=== PATIENT | male | born 1970 | race Caucasian/White ===

== ENCOUNTER 2016-09-18 17:34 | Inpatient (IN) | payer MEDICAID ==
[~2016-09-18] VITALS: Ht 170.2 cm; Wt 68.7 kg
[~2016-09-18 17:34] MED LIST: [UNRECOGNIZED DRUG - OTHER]; lantus
--- NOTE | 2016-09-18 23:46 | ERA ---
ER Documentation Chief Complaint Date/Time DATE: 09/18/16 TIME: 23:45 Chief Complaint Shortness of breath HPI The patient is a 46-year-old male, presenting to the ER because of acute dyspnea , orthopnea, paroxysmal nocturnal dyspnea and intermittent cough for 1 week. He denies similar symptoms previously. He denies chest pain, fever, chills, neck pain, abdominal pain, vomiting, dysuria, diarrhea. He does not smoke does not drink. His last hemodialysis was yesterday Past medical history: Chronic kidney disease, hypertension, diabetes mellitus Past surgical history: Left upper extremity AV fistula, right shoulder, back ROS All systems reviewed and are negative except as per history of present illness. Medications Home Meds Reported Medications [meds for htn] No Conflict Check 01/13/15 [lantus] No Conflict Check 01/13/15 Allergies Allergies: Coded Allergies: No Known Allergy (Unverified , 01/13/15) PMhx/Soc History of Surgery: Yes (rihgt arm "nerve" surgery) Anesthesia Reaction: No Hx Neurological Disorder: No Hx Respiratory Disorders: No Hx Cardiac Disorders: Yes (hypertension) Hx Psychiatric Problems: No Hx Miscellaneous Medical Probl: Yes (diabetes mellitus) Hx Alcohol Use: No Hx Substance Use: No Hx Tobacco Use: No Physical Exam Vitals Vital Signs Date Time Temp Pulse Resp B/P Pulse Ox O2 Delivery O2 Flow Rate FiO2 09/19/16 02:28 81 22 171/91 98 Nasal Cannula 4.0 09/19/16 00:34 Nasal Cannula 2 09/19/16 00:20 98.2 79 20 194/98 98 Room Air 09/18/16 17:36 98.1 89 20 209/98 99 Physical Exam Const: No acute distress. Head: Atraumatic. Eyes: Normal Conjunctiva. ENT: Normal External Ears, Nose and Mouth. Neck: Full range of motion. No meningismus. Resp: Bibasilar crackles. Cardio: Regular rate and rhythm, no murmurs. Abd: Soft, non distended, normal bowel sounds, non tender. Skin: No petechiae or rashes. Back: No midline or flank tenderness. Ext: No cyanosis, or edema. Neur: Awake and alert. No focal deficit Psych: Normal Mood and Affect. Result Diagram: 09/19/16 0020 09/19/16 0020 Results 24 hrs Laboratory Tests Test 09/19/16 00:20 Activated Partial Thromboplast Time 32.0Sec Anion Gap 19 Basophils # 0.010^3/ul Basophils % 0.5% Blood Morphology Comment Blood Urea Nitrogen 61mg/dl Calcium Level 8.8mg/dl Carbon Dioxide Level 28mmol/L Chloride Level 94mmol/L Creatinine 10.72mg/dl Eosinophils # 0.310^3/ul Eosinophils % 4.1% Glucose Level 95mg/dl Hematocrit 32.6% Hemoglobin 10.8g/dl INR International Normalized Ratio 1.01 Lymphocytes # 0.610^3/ul Lymphocytes % 10.3% Mean Corpuscular Hemoglobin 30.4pg Mean Corpuscular Hemoglobin Concent 33.2g/dl Mean Corpuscular Volume 91.7fl Mean Platelet Volume 9.1fl Monocytes # 0.710^3/ul Monocytes % 11.2% Neutrophils # 4.510^3/ul Neutrophils % 73.9% Nucleated Red Blood Cells # 0.010^3/ul Nucleated Red Blood Cells % 0.0/100WBC Platelet Count 96972^3/UL Potassium Level 5.3mmol/L Prothrombin Time 13.3Sec Prothrombin Time Ratio 1.0 Red Blood Count 3.5610^6/ul Red Cell Distribution Width 15.2% Sodium Level 136mmol/L Troponin I 0.026ng/ml White Blood Count 6.010^3/ul Current Medications Medications (Trade) Dose Ordered Sig/Yousif Route PRN Reason Start Time Stop Time Status Last Admin Dose Admin Hydralazine HCl (Apresoline) 20 mg ONCE ONCE IV 09/19/16 00:30 09/19/16 00:31 DC 09/19/16 00:34 Sodium Polystyrene Sulfonate (Kayexalate) 30 gm ONCE ONCE PO 09/19/16 01:30 09/19/16 01:31 DC 09/19/16 01:39 Labetalol HCl (Labetalol) 20 mg ONCE ONCE IV 09/19/16 01:30 09/19/16 01:33 DC 09/19/16 01:40 Amlodipine Besylate (Norvasc) 10 mg ONCE ONCE PO 09/19/16 01:30 09/19/16 01:33 DC 09/19/16 01:49 Labetalol HCl (Labetalol) 40 mg ONCE ONCE IV 09/19/16 02:30 09/19/16 02:31 DC 09/19/16 02:11 Labetalol HCl (Labetalol) 40 mg ONCE ONCE IV 09/19/16 04:30 09/19/16 04:39 DC 09/19/16 04:39 Procedures/MDM EKG: Read by emergency physician Rate/Rhythm: Normal Sinus Rhythm 85 beats per min QRS, ST, T-waves: No ST elevation, no T wave inversion, LAD, RSR prime in V1 Impression: Abnormal EKG [place] [id number] Radiology Main Line: [phone] DIAGNOSTIC IMAGING REPORT Patient: JONO BOND : 1970 Age: 46 Sex: M MR #: [id number] DOS: 09/19/16 0009 Ordering MD: IRINA FUNEZ MD Location: E/R Room/Bed: PROCEDURE: XR Chest. CLINICAL INDICATION: SOB TECHNIQUE: Single frontal chest x-ray. COMPARISON: 01/13/2015 FINDINGS: The patient is rotated to the right. There is hypoinflation of the lungs. This along with portable AP technique accentuates the size of the cardiac silhouette. The heart does not appear to be grossly enlarged. The appearance of minimal pulmonary vascular congestion and mild bilateral increased interstitial lung densities which could represent mild interstitial pulmonary edema or other infiltrates appearing since previous study. ECG leads projected over the chest.. IMPRESSION: Hypoinflation of the lungs. Appearance of minimal pulmonary vascular congestion and mild bilateral increased interstitial lung densities which could represent mild interstitial pulmonary edema or other infiltrates appearing since previous study. Please see above. RPTAT: HJES .Kwame Santiago MD, Date Time Electronically viewed and signed by .Kwame Santiago MD, MD on 09/19/2016 01:16 .S/ CC: IRINA FUNEZ MD MEDICAL MAKING DECISION: The patient is a 46-year-old male, presenting with acute fluid overload, acute hyperkalemia, acute accelerated hypertension. He does not make any urine; he was treated with hydralazine 20 mg IV, labetalol 20 mg IV, labetalol 40 mg IV 2 and Norvasc 10 mg p.o. for acute accelerated hypertension and Kayexalate 30 g p.o. for acute hyperkalemia with good response. The differential diagnoses considered include but are not limited to asthma, COPD, pneumonia, pulmonary embolus, pleural effusion, congestive heart failure. Critical Care: Time: 35 minutes excluding all billable procedures. Treatments/Evaluations: Close monitoring and treatment of unstable vital signs, cardiorespiratory, and neurologic status, while maintaining tight balance of fluid, respiratory, and cardiac interventions. Departure Diagnosis: Primary Impression: Fluid overload Additional Impressions: Hyperkalemia Accelerated hypertension Anemia Condition: Stable Comments I discussed the findings with the patient. I discussed the patient with on-call hospitalist Dr Hunag who was made aware of the lab, the treatment, the patient condition. The patient is admitted to telemetry at 1:30 AM IRINA FUNEZ MD Sep 18, 2016 23:46
[2016-09-19] VITALS (23 sets, daily range): BP systolic 175–222; BP diastolic 80–121; PULSE 80–100; RESP 18–20; TEMP 98.2; Ht 170.2 cm; Wt 68.7 kg
[2016-09-19] MEDS ORDERED: hydrALAzine 20 MG INJ IV ONE (00:30)
[2016-09-19 00:47] LABS: INR 1.01; POTASSIUM 5.3 mmol/L (3.5-5.1); PROTIME 13.3 Sec (12.2-14.2)
[2016-09-19 00:49] LABS: CREATININE 10.72 mg/dl (0.61-1.24)
[2016-09-19 00:50] LABS: CALCIUM 8.8 mg/dl (8.4-10.2)
[2016-09-19 01:01] LABS: TROPONIN-I 0.026 ng/ml (0.00-0.12)
[2016-09-19 01:09] LABS: BASOPHILS % 0.5 % (0.0-2.0); EOSINOPHILS # 0.3 10^3/ul (0.0-0.5); EOSINOPHILS % 4.1 % (0.0-7.0); HEMATOCRIT 32.6 % (42.0-52.0); HEMOGLOBIN 10.8 g/dl (14.0-18.0); LYMPHOCYTES # 0.6 10^3/ul (0.8-2.9); LYMPHOCYTES % 10.3 % (15.0-51.0); MEAN CORPUSCULAR HEMOGLOBIN 30.4 pg (29.0-33.0); MEAN CORPUSCULAR HGB CONC 33.2 g/dl (32.0-37.0); MEAN CORPUSCULAR VOLUME 91.7 fl (82.0-101.0); MEAN PLATELET VOLUME 9.1 fl (7.4-10.4); MONOCYTE # 0.7 10^3/ul (0.3-0.9); MONOCYTES % 11.2 % (0.0-11.0); NEUTROPHIL # 4.5 10^3/ul (1.6-7.5); NEUTROPHILS % 73.9 % (39.0-77.0); PLATELET COUNT 163 10^3/UL (140-440); RED BLOOD COUNT 3.56 10^6/ul (4.70-6.10); RED CELL DISTRIBUTION WIDTH 15.2 % (11.5-14.5)
[2016-09-19 01:10] LABS: CONDITION 1; LH ANALYZER COMMENTS 1
--- NOTE | 2016-09-19 01:16 | RADRPT ---
PROCEDURE: XR Chest. CLINICAL INDICATION: SOB TECHNIQUE: Single frontal chest x-ray. COMPARISON: 01/13/2015 FINDINGS: The patient is rotated to the right. There is hypoinflation of the lungs. This along with portable AP technique accentuates the size of the cardiac silhouette. The heart does not appear to be gross ly enlarged. The appearance of minimal pulmonary vascular congestion and mild bilateral increased i nterstitial lung densities which could represent mild interstitial pulmonary edema or other infiltra raghav appearing since previous study. ECG leads projected over the chest.. IMPRESSION: Hypoinflation of the lungs. Appearance of minimal pulmonary vascular congestion and mild bilateral increased interstitial lung densities which could represent mild interstitial pulmonary edema or oth er infiltrates appearing since previous study. Please see above. RPTAT: HJES .Kwame Santiago MD, MD Date Time Electronically viewed and signed by .Kwame Santiago MD, on 09/19/2016 01:16 .S/
[2016-09-19] MEDS ORDERED: AMLODIPINE 10 MG TAB PO ONE (01:30)
[2016-09-19] MEDS ORDERED: NA POLYST SULFON 15 GM/60 ML BTL PO ONE (01:30)
[2016-09-19] MEDS ORDERED: LABETALOL HCL 20MG INJ IV ONE ×4 (01:30→16:21)
[2016-09-19] MEDS ORDERED: NITROGLYCERIN (SL) 0.4 MG TAB SL PRN (08:30)
[2016-09-19] MEDS ORDERED: ALBUTEROL/IPRATROPIUM (NEB) 3 ML AMP HHN PRN (08:30)
[2016-09-19] MEDS ORDERED: NACL 0.9% 3 ML SYG IV SCH (08:30)
[2016-09-19] MEDS ORDERED: ONDANSETRON 4 MG INJ IV PRN (08:30)
[2016-09-19] MEDS: HEPARIN 5,000 UNIT/0.5 ML SYG SC SCH ×2 (10:59→21:06)
[2016-09-19] MEDS: ASPIRIN 81 MG TAB PO SCH ×2 (10:59→11:48)
[2016-09-19] MEDS: ACETAMINOPHEN 325 MG TAB PO PRN (11:13)
[2016-09-19] MEDS: AMLODIPINE 10 MG TAB PO SCH ×2 (11:49→15:03)
--- NOTE | 2016-09-19 12:01 | HP ---
DATE OF ADMISSION: 09/19/2016 TIME SEEN: 7 a.m. CHIEF COMPLAINT: Shortness of breath and cough. HISTORY OF PRESENT ILLNESS: The patient is a 46-year-old male with a history of hypertension, diabet es, depression, end-stage renal disease on hemodialysis who presented to the emergency department wi th shortness of breath and a cough. It seems that patient's last dialysis was yesterday. The patie nt is not really sure whether or not his shortness of breath has an exertional component to it. He d enied any chest pain, nausea, vomiting, fever, chills, abdominal pain. His cough was dry for the mo st part but occasionally productive of white sputum. When the patient presented to the ER he was hypertensive with a blood pressure of 209/98, which impr jim to 179/80, around the time ____. While the patient was in the ER, chest x-ray was done and it showed mild pulmonary edema and possibl e ____. REVIEW OF SYSTEMS: A 12-point review of systems was performed and is negative except mentioned in th e HPI. PAST MEDICAL HISTORY: As per HPI. PAST SURGICAL HISTORY: Left upper extremity AV fistula, also right shoulder and lumbar surgery. SOCIAL HISTORY: Drinks alcohol occasionally. No tobacco or illicit drug use. ALLERGIES AND HOME MEDICATIONS: Please see ____. PHYSICAL EXAMINATION: VITAL SIGNS: Blood pressure 179/80, heart rate 84, respiratory rate 20, temperature 98.6, oxygen sa turation 99% on room air. GENERAL: No acute distress. He looks comfortable, alert and oriented. HEENT: No obvious head deformity. Pupils are reactive to light. Extraocular muscles intact. No sc leral icterus. CARDIOVASCULAR: Regular rate and rhythm. No extra sounds. LUNGS: Slightly diminished breath sounds at the bases. No wheezes or rhonchi. ABDOMEN: Soft, nontender, nondistended. Positive bowel sounds. EXTREMITIES: Trace pitting edema. The AV fistula with a good thrill in the left upper extremity. IMAGING: Chest x-ray with mild pulmonary edema and probably infiltrates IMPRESSION: 1. Shortness of breath and cough. 2. Hypertensive urgency. 3. End-stage renal disease on dialysis. 4. Diabetes. 5. History of depression. PLAN: The patient's presenting symptoms of shortness of breath and cough could possibly be from the mild pulmonary edema and probable URI versus early pneumonia. He will be placed on oxygen and will provide bronchodilators as needed. He will need to be worked up for possible CHF, and as such, will obtain a 2D echo. We will trend his troponin. Will continue antihypertensives and adjust as needed for better blood pressure control. We will place a nephrology consult for dialysis. He will be on insulin for his diabetes and will check an A1c ____ with it and a TSH. If his cough persists, and e specially if he becomes febrile we are also going to check for influenza. Further workup and management per clinical course. Dictated By: FERNANDO LEAHY/GERARDO Conf#: [id number] DID#: [id number]
[2016-09-19 12:28] LABS: TROPONIN-I 0.015 ng/ml (0.00-0.12)
[2016-09-19] MEDS ORDERED: GLUCAGON 1 MG INJ IM PRN (12:30)
[2016-09-19] MEDS ORDERED: GLUCOSE GEL 15 GRAM TUBE BUCCAL PRN (12:30)
[2016-09-19] MEDS: INSULIN ASPART [NOVOLOG] 3 ML PEN SC SCH ×3 (12:30→21:05)
[2016-09-19] MEDS ORDERED: DEXTROSE 50% 50 ML SYRINGE IV PRN ×2 (12:30)
[2016-09-19] MEDS ORDERED: GLUCOSE GEL 15 GRAM TUBE PO PRN ×2 (12:30)
[2016-09-19 12:35] LABS: CK-MB 2.39 ng/ml (0.0-2.4)
--- NOTE | 2016-09-19 13:18 | CONS ---
DATE OF ADMISSION: 09/19/2016 DATE OF CONSULTATION: TYPE OF CONSULTATION: Nephrology. REASON FOR CONSULTATION: End-stage renal disease, hyperkalemia. REQUESTING PHYSICIAN: Young Huang MD HISTORY OF PRESENT ILLNESS: This is a 46-year-old male with a past medical history of end-stage anibal al disease on dialysis Friday, , Friday with access of a left upper extremity AV fistula. The patient's primary court clerk is Dr. Spencer out of [place]. The patient also has history of hy pertension. He presents to [facility] [place] with complaints of shortness of breath, par oxysmal nocturnal dyspnea and intermittent cough. The patient states these symptoms have been ongoi ng over the past week. Upon arrival to the emergency room, the patient had a chest x-ray which show ed vascular congestion, interstitial lung densities and possible edema. The patient in the emergenc y room was also noted to be hypotensive with systolic pressures greater than 200. He received IV la betalol and Norvasc in the emergency room, hydralazine and admitted to telemetry for further evaluat ion. Upon my evaluation of the patient at this time, he is currently complaining of some mild shortness b reath, denies any active chest pain, nausea, vomiting, hemoptysis or hematemesis. PAST MEDICAL HISTORY: As stated above, history of end-stage renal disease, history of hypertension, history of diabetes. PAST SURGICAL HISTORY: Status post AV fistula. ALLERGIES: NO KNOWN DRUG ALLERGIES. FAMILY HISTORY: No family history of kidney disease or heart disease. SOCIAL HISTORY: Does not drink, smoke or do drugs. MEDICATIONS: The patient's medications have been reviewed. REVIEW OF SYSTEMS: A 14-point review of systems was conducted. Pertinent positives in HPI, otherwi se negative. PHYSICAL EXAMINATION: VITAL SIGNS: Blood pressure is 208/100, respirations 20, pulse 96, temperature 98.2. HEENT: Head is normocephalic. Pupils are reactive to light. NECK: Supple. HEART: Regular rate. LUNGS: Show diminished breath sounds at the base. ABDOMEN: Soft, nontender to palpation without rebound or guarding. EXTREMITIES: Negative for clubbing, cyanosis, or edema. DERMATOLOGIC: No rashes. MUSCULOSKELETAL: The patient has a left AV fistula with good thrill and bruit. NEUROLOGIC: No focal deficits. LABORATORY DATA: Shows a white count 6.0, hemoglobin 10.8, hematocrit 32.6, platelet count 163. So dium 136, potassium 4.3, chloride 94, BUN 61, creatinine 2.72. ASSESSMENT AND PLAN: 1. End-stage renal disease. The patient is on dialysis Friday, , Friday, with an access of a left AV fistula. Plan is for hemodialysis today. Will dialyze for 3 hours on a 2K bath, calc ium 2.5, will ultrafiltrate as tolerated. 2. Hypertensive urgency, etiology in part due to increased intravascular volume. Anticipate dialys is today and tomorrow for volume removal and goal ultrafiltration between 2 to 3 liters. 3. Volume overload. The patient has noted pulmonary edema, lower extremity edema. Will continue u ltrafiltration with hemodialysis. 4. Hyperkalemia secondary to end-stage renal disease. The patient will be dialyzed 2 potassium bat h. 5. Mineral bone disorder, will monitor calcium and phosphorus levels. Defer phosphate binders at t his time. 6. Acute respiratory failure secondary to pulmonary edema as stated above. Plan is for dialysis ul trafiltration. Thank you, Dr. Huang, for this interesting consult. It will be a pleasure to follow the patient with you throughout the hospital course. Dictated By: GIOVANA HOUSE/GERARDO Conf#: [id number] DID#: [id number]
[2016-09-19 15:44] LABS: TROPONIN-I 0.018 ng/ml (0.00-0.12)
[2016-09-19] MEDS ORDERED: hydrALAzine 20 MG INJ ONE (15:47)
[2016-09-19 15:50] LABS: CK-MB 2.15 ng/ml (0.0-2.4)
[2016-09-19] MEDS: hydrALAzine 20 MG INJ IV PRN (15:50)
[2016-09-19] MEDS: HYDROCODONE/APAP (5/325) TAB PO PRN (16:51)
[2016-09-19] MEDS: LISINOPRIL 10 MG TAB PO SCH (17:20)
--- NOTE | 2016-09-19 20:06 | RADRPT ---
Echocardiogram Report Patient Name: JONO BOND Gender: Male Date: 1970 Study Date: 19-Sep-2016 [employer] Helper: [facility] Location: 518 Ref. Physician: FERNANDO ROBLES Quality: Good Procedures: Transthoracic echocardiogram with complete 2D, M-Mode, and doppler examination. Indications: Shortness of breath. 2D/M Mode Doppler Measurement Value Normal Ranges Measurement Value Normal Ranges LVIDd 2D 5.4 3.5 - 5.6 cm AV Peak Theo 1.2 m/sec LVIDs 2D 3.6 2.1 - 4.1 cm AV Peak PG 6.0 mmHg FS 2D 33.9 % LVOT Peak Theo 1.1 m/sec LVPWd 2D 1.3 0.6 - 1.1 cm LVOT Peak PG 5.0 mmHg IVSd 2D 1.2 0.6 - 1.1 cm MV E Peak Theo 0.9 m/sec IVS/LVPW 2D 1.0 MV A Peak Theo 0.5 m/sec AoR Diam 2D 3.2 2.0 - 3.7 cm MV E/A 1.8 LA/Ao 2D 1 0 - 1 MV Decel Time 102 msec EDV 2D 159.0 cm3 MV E/A 1.8 ESV 2D 45.9 cm3 TR Peak Theo 3.6 m/sec LA Dimen 2D 4.4 2.3 - 4.0 cm TR Peak PG 53.0 mmHg RVSP 61.0 mmHg Findings Left Ventricle: Lower limits of normal systolic function. Normal left ventricular cavity size. Mild concentric left ventricular hypertrophy. Mild left ventricular systolic dysfunction. Ejection fraction is visually estimated at 50 %. Tissue Doppler/Mitral Doppler indices are consistent with impaired relaxation (Stage I diastolic dysfunction). Right Ventricle: Normal right ventricular size. Normal right ventricular systolic function. Left Atrium: There is mild enlargement of left atrium. Right Atrium: The right atrium is normal in size. Mitral Valve: Mitral valve leaflets appear mildly thickened. Mild mitral annular calcification. Mild mitral valve regurgitation. Aortic Valve: Normal appearance of the aortic valve. No significant aortic stenosis or insufficiency. Tricuspid Valve: Normal appearance of the tricuspid valve. Estimated peak PA systolic pressure 61 mmHg. There is mild tricuspid regurgitation. Pericardium: Normal pericardium with no significant pericardial effusion. Aorta: Normal aortic root. IVC: Dilated IVC with respiratory collapse consistent with elevated right atrial pressure. Conclusions 1.Lower limits of normal systolic function. Normal left ventricular cavity size. Mild concentric left ventricular hypertrophy. Mild left ventricular systolic dysfunction. Ejection fraction is visually estimated at 50 %. Tissue Doppler/Mitral Doppler indices are consistent with impaired relaxation (Stage I diastolic dysfunction). 2.There is mild enlargement of left atrium. 3.Mitral valve leaflets appear mildly thickened. Mild mitral annular calcification. Mild mitral valve regurgitation. 4.Normal appearance of the tricuspid valve. Estimated peak PA systolic pressure 61 mmHg. There is mild tricuspid regurgitation. Electronically Signed By: Montrell Ortiz 19-Sep-2016 20:05:08 -0800 Patient Name: JONO BOND Study Date: 19-Sep-2016 [id number]
[2016-09-19] MEDS: ZOLPIDEM 5 MG TAB PO PRN (20:49)
[2016-09-19] MEDS: morphine 2 MG INJ IV PRN (21:00)
[2016-09-20] VITALS (19 sets, daily range): BP systolic 176–218; BP diastolic 82–110; PULSE 85–100; RESP 16–20
[2016-09-20] MEDS: ACCUCHECK XX SCH (02:00)
[2016-09-20] MEDS: ACETAMINOPHEN 325 MG TAB PO PRN (03:49)
[2016-09-20] MEDS: hydrALAzine 20 MG INJ IV PRN ×2 (03:50→19:48)
[2016-09-20 06:43] LABS: ALBUMIN 3.3 g/dl (3.3-4.9); POTASSIUM 4.8 mmol/L (3.5-5.1)
[2016-09-20 06:45] LABS: CREATININE 9.08 mg/dl (0.61-1.24)
[2016-09-20 06:46] LABS: ALBUMIN/GLOBULIN RATIO 1.26; BILIRUBIN,INDIRECT 0.1 mg/dl (0-1.1); BILIRUBIN,TOTAL 0.1 mg/dl (0.2-1.3); CALCIUM 8.2 mg/dl (8.4-10.2); MAGNESIUM 2.2 mg/dl (1.7-2.5); TOTAL PROTEIN 5.9 g/dl (6.1-8.1)
[2016-09-20 06:47] LABS: CHOL/HDL RATIO 2.2 RATIO
[2016-09-20 06:51] LABS: BASOPHILS % 0.4 % (0.0-2.0); EOSINOPHILS # 0.6 10^3/ul (0.0-0.5); EOSINOPHILS % 8.8 % (0.0-7.0); HEMATOCRIT 30.4 % (42.0-52.0); HEMOGLOBIN 10.3 g/dl (14.0-18.0); LYMPHOCYTES # 0.9 10^3/ul (0.8-2.9); LYMPHOCYTES % 12.7 % (15.0-51.0); MEAN CORPUSCULAR HEMOGLOBIN 31.3 pg (29.0-33.0); MEAN CORPUSCULAR HGB CONC 33.9 g/dl (32.0-37.0); MEAN CORPUSCULAR VOLUME 92.2 fl (82.0-101.0); MEAN PLATELET VOLUME 8.5 fl (7.4-10.4); MONOCYTE # 0.8 10^3/ul (0.3-0.9); MONOCYTES % 11.4 % (0.0-11.0); NEUTROPHIL # 4.5 10^3/ul (1.6-7.5); NEUTROPHILS % 66.7 % (39.0-77.0); PLATELET COUNT 171 10^3/UL (140-440); UNCORRECTED WBC 6.7 10^3/ul (4.8-10.8); WHITE BLOOD COUNT 6.7 10^3/ul (4.8-10.8)
[2016-09-20 07:45] LABS: THYROID STIMULATING HORMONE 1.54 MIU/L (0.465-4.680)
[2016-09-20] MEDS: INSULIN ASPART [NOVOLOG] 3 ML PEN SC SCH ×4 (07:55→21:11)
[2016-09-20 08:00] LABS: CONDITION 1; LH ANALYZER COMMENTS 1
[2016-09-20] MEDS: ASPIRIN 81 MG TAB PO SCH (08:23)
[2016-09-20] MEDS: AMLODIPINE 10 MG TAB PO SCH (08:24)
[2016-09-20] MEDS: LISINOPRIL 10 MG TAB PO SCH (08:24)
[2016-09-20] MEDS: HEPARIN 5,000 UNIT/0.5 ML SYG SC SCH ×2 (08:29→21:11)
[2016-09-20] MEDS ORDERED: LISINOPRIL 10 MG TAB PO ONE (10:00)
[2016-09-20] MEDS: HYDROCODONE/APAP (5/325) TAB PO PRN (11:28)
--- NOTE | 2016-09-20 13:01 | PN ---
Date/Time of Note Date/Time of Note DATE: 09/20/16 TIME: 12:55 Assessment/Plan VTE Prophylaxis VTE Prophylaxis Intervention: heparin Lines/Catheters IV Catheter Type (from Nrs): Peripheral IV Urinary Cath still in place: No Assessment/Plan Chief Complaint/Hosp Course 1.Acute Resp Distress 2/2 Pulm Edema from ESRD -cont HD today 2. Hypertensive urgency likely 2/2 Volume OD -Have Increased Lisinopril to 20 mg Daily and if still high tomorrow would increase to 40 Daily, cont Norvasc and Clonidine PRN 3. End-stage renal disease on dialysis -HD per renal with plans for HD today 4. DM with Hyperglycemia possibly 2/2 Stress -A1C at 5.2,cont NISS PPx- Heparin Problems: Subjective 24 Hr Interval Summary Constitutional: no complaints Exam/Review of Systems Vital Signs Vitals Vital Signs Date Time Temp Pulse Resp B/P Pulse Ox O2 Delivery O2 Flow Rate FiO2 09/20/16 11:24 98.1 92 18 186/92 94 09/19/16 21:00 2.0 09/19/16 21:00 Nasal Cannula Intake and Output 09/19/16 09/19/16 09/20/16 15:00 23:00 07:00 Intake Total 1680 ml 400 ml Output Total 2500 ml Balance -820 ml 400 ml Exam Constitutional: alert, oriented Respiratory: clear to auscultation Cardiovascular: regular rate and rhythm Gastrointestinal: soft, No distended Musculoskeletal: nl extremities to inspection Results Result Diagram: 09/20/16 0519 09/20/16 0519 Results 24 hrs Laboratory Tests Test 09/19/16 14:50 09/19/16 17:22 09/19/16 20:14 09/20/16 03:55 Creatine Kinase 254 H Creatine Kinase Index 0.8 Creatinine Kinase MB (Mass) 2.15 Troponin I 0.018 Bedside Glucose 182 215 150 Test 09/20/16 05:19 09/20/16 07:50 09/20/16 11:32 Alanine Aminotransferase (ALT/SGPT) 27 Albumin 3.3 Albumin/Globulin Ratio 1.26 Alkaline Phosphatase 82 Anion Gap 17 H Aspartate Amino Transf (AST/SGOT) 18 Basophils # 0.0 Basophils % 0.4 Blood Morphology Comment Blood Urea Nitrogen 41 #H Calcium Level 8.2 L Carbon Dioxide Level 31 Chloride Level 97 Cholesterol Level 124 Cholesterol/HDL Ratio 2.2 Creatinine 9.08 H Direct Bilirubin 0.00 Eosinophils # 0.6 H Eosinophils % 8.8 H Globulin 2.60 Glucose Level 126 HDL Cholesterol 54 Hematocrit 30.4 L Hemoglobin 10.3 L Hemoglobin A1c 5.2 Indirect Bilirubin 0.1 LDL Cholesterol, Calculated 55 Lymphocytes # 0.9 Lymphocytes % 12.7 L Magnesium Level 2.2 Mean Corpuscular Hemoglobin 31.3 Mean Corpuscular Hemoglobin Concent 33.9 Mean Corpuscular Volume 92.2 Mean Platelet Volume 8.5 Monocytes # 0.8 Monocytes % 11.4 H Neutrophils # 4.5 Neutrophils % 66.7 Nucleated Red Blood Cells # 0.0 Nucleated Red Blood Cells % 0.0 Platelet Count 171 Potassium Level 4.8 Red Blood Count 3.30 L Red Cell Distribution Width 15.0 H Sodium Level 140 Thyroid Stimulating Hormone (TSH) 1.540 Total Bilirubin 0.1 L Total Protein 5.9 L Triglycerides Level 75 White Blood Count 6.7 Bedside Glucose 111 170 Medications Medications Current Medications Ondansetron HCl (Zofran Inj) 4 mg Q6H PRN IV NAUSEA AND/OR VOMITING; Start 09/19 at 08:30 Aspirin (Aspirin) 81 mg DAILY PO Last administered on 09/20/16 08:23; Admin Dose 81 MG; Start 09/19/16 at 09:00 Nitroglycerin (Nitroglycerin (Sl Tab) 0.4 Mg) 1 tab Q5M PRN SL CHEST PAIN; Start 09/19/16 at 08:30 Acetaminophen (Tylenol Tab) 650 mg Q6H PRN PO PAIN LEVEL 1-3 OR FEVER Last administered on 09/20/16 03:49; Admin Dose 650 MG; Start 09/19/16 at 08:30 Morphine Sulfate (morphine) 2 mg Q4H PRN IV PAIN LEVEL 7-10 Last administered on 09/19/16 21:00; Admin Dose 2 MG; Start 09/19/16 at 08:30 Heparin Sodium (Porcine) (Heparin (5000 Units/0.5 ml)) 5,000 unit Q12 SC Last administered on 09/20/16 08:29; Admin Dose 5,000 UNIT; Start 09/19/16 at 09:00 Amlodipine Besylate (Norvasc) 10 mg DAILY PO Last administered on 09/20/16 08: 24; Admin Dose 10 MG; Start 09/19/16 at 12:00 Diagnostic Test (Pha) (Accucheck) 1 ea 02 XX Last administered on 09/20/16 02: 00; Admin Dose 1 EA; Start 09/20/16 at 02:00 Miscellaneous Information 1 ea NOTE XX ; Start 09/19/16 at 12:30 Glucose (Glutose) 15 gm Q15M PRN PO DECREASED GLUCOSE; Start 09/19/16 at 12:30 Glucose (Glutose) 22.5 gm Q15M PRN PO DECREASED GLUCOSE; Start 09/19/16 at 12:30 Dextrose (D50w Syringe) 25 ml Q15M PRN IV DECREASED GLUCOSE; Start 09/19/16 at 12:30 Dextrose (D50w Syringe) 50 ml Q15M PRN IV DECREASED GLUCOSE; Start 09/19/16 at 12:30 Glucagon (Glucagen) 1 mg Q15M PRN IM DECREASED GLUCOSE; Start 09/19/16 at 12:30 Glucose (Glutose) 15 gm Q15M PRN BUCCAL DECREASED GLUCOSE; Start 09/19/16 at 12: 30 Hydralazine HCl (Apresoline) 10 mg Q6H PRN IV ELEVATED BLOOD PRESSURE Last administered on 09/20/16 03:50; Admin Dose 10 MG; Start 09/19/16 at 16:00 Acetaminophen/ Hydrocodone Bitart (Murphy (5/325)) 1 tab Q6H PRN PO PAIN LEVEL 4 -7 Last administered on 09/20/16 11:28; Admin Dose 1 TAB; Start 09/19/16 at 17:00 Labetalol HCl (Labetalol) 20 mg Q2 PRN IV SBP>170; Start 09/19/16 at 17:00 Clonidine (Catapres) 0.2 mg Q6H PRN PO ELEVATED SYSTOLIC BP Last administered on 09/19/16 23:25; Admin Dose 0.2 MG; Start 09/19/16 at 23:30 Zolpidem Tartrate (Ambien) 5 mg HS PRN PO INSOMNIA Last administered on 20:49; Admin Dose 5 MG; Start 09/19/16 at 20:30 Lisinopril (Zestril) 20 mg DAILY PO ; Start 09/21/16 at 09:00 TRINY DOMINGUEZ Sep 20, 2016 13:01
--- NOTE | 2016-09-20 13:32 | PN ---
DATE: 09/20/2016 SUBJECTIVE: The patient had hemodialysis yesterday, tolerated well. The patient remains hypertensi ve, but otherwise has denied any hemoptysis, hematemesis or hematochezia. The patient had a low-gra de fever. No other events noted. OBJECTIVE: VITAL SIGNS: Blood pressure 176/82, respiration 19, pulse 90, temperature 98.5. I's AND O'S: The patient had 2 L in, 2.5 liters out. HEENT: Head is normocephalic. NECK: Supple. HEART: Regular rate. LUNGS: Show diminished breath sounds at the base. ABDOMEN: Soft, nontender to palpation without rebound or guarding. EXTREMITIES: Negative for clubbing, cyanosis, no edema. DERMATOLOGIC: No rashes. MUSCULOSKELETAL: No joint effusions. NEUROLOGIC: No change in exam. MEDICATIONS: The patient's medications have been reviewed. LABORATORY DATA: Shows sodium 140, potassium 4.9, chloride 97, BUN 4.1, creatinine 9.08. White cou nt 86.7, hemoglobin 10.3, hematocrit 30.4, platelet count is 171. ASSESSMENT AND PLAN: 1. End-stage renal disease. The patient is on dialysis Friday, , Friday. Had hemodialys is yesterday, tolerated well. Plan for dialysis again today for solute clearance and volume removal . 2. Hypertensive urgency in part due to increased intravascular volume. Continue blood pressure med ications. Continue ultrafiltration with dialysis. 3. Volume overload. Will continue ultrafiltration dialysis. The patient is clinically improving. 4. Hyperkalemia secondary to end-stage renal disease, resolved. 5. Mineral bone disorder. Continue to monitor calcium and phosphorus levels. 6. Acute respiratory failure secondary to pulmonary edema. Continue current medical management. C ontinue dialysis. 7. Low grade fever, Sepsis inflammatory response syndrome. Continue to monitor. Dictated By: GIOVANA HOUSE/GERARDO Conf#: [id number] DID#: [id number]
[2016-09-20] MEDS: LABETALOL HCL 20MG INJ IV PRN ×3 (16:50→22:55)
[2016-09-20] MEDS: morphine 2 MG INJ IV PRN (19:53)
[2016-09-20] MEDS: ZOLPIDEM 5 MG TAB PO PRN (23:30)
[2016-09-21] VITALS (12 sets, daily range): BP systolic 160–185; BP diastolic 72–89; PULSE 70–91; RESP 16–20
[2016-09-21] MEDS: morphine 2 MG INJ IV PRN (01:19)
[2016-09-21] MEDS: LABETALOL HCL 20MG INJ IV PRN (01:20)
[2016-09-21] MEDS: ACCUCHECK XX SCH (02:33)
[2016-09-21 07:44] LABS: POTASSIUM 4.7 mmol/L (3.5-5.1)
[2016-09-21 07:47] LABS: CALCIUM 8.6 mg/dl (8.4-10.2); CREATININE 8.39 mg/dl (0.61-1.24)
[2016-09-21] MEDS: INSULIN ASPART [NOVOLOG] 3 ML PEN SC SCH ×4 (07:55→20:32)
[2016-09-21] MEDS: ASPIRIN 81 MG TAB PO SCH (08:07)
[2016-09-21] MEDS: AMLODIPINE 10 MG TAB PO SCH (08:08)
[2016-09-21] MEDS: LISINOPRIL 20 MG TAB PO SCH (08:08)
[2016-09-21] MEDS: HEPARIN 5,000 UNIT/0.5 ML SYG SC SCH ×2 (08:12→20:37)
--- NOTE | 2016-09-21 08:24 | CONS ---
Date/Time of Note Date/Time of Note DATE: 09/21/16 TIME: 08:23 Consult Date/Type/Reason Admit Date/Time Sep 19, 2016 at 01:32 Initial Consult Date Type of Consultation: nephro Subjective Pt. seen and examined. s/p HD yesterday , tolerated well. Objective Vital Signs Date Time Temp Pulse Resp B/P Pulse Ox O2 Delivery O2 Flow Rate FiO2 09/21/16 08:15 75 09/21/16 07:29 98.1 18 160/81 99 09/21/16 00:29 2.0 09/21/16 00:28 Nasal Cannula Intake and Output 09/20/16 09/20/16 09/21/16 15:00 23:00 07:00 Intake Total 920 ml Output Total 5800 ml Balance -4880 ml Results/Medications Result Diagram: 09/20/16 0519 09/21/16 0606 Results 24 hrs Laboratory Tests Test 09/20/16 11:32 09/20/16 17:00 09/20/16 20:58 09/21/16 02:32 Bedside Glucose 170 154 184 144 Test 09/21/16 06:06 09/21/16 07:44 Anion Gap 16 Blood Urea Nitrogen 39 H Calcium Level 8.6 Carbon Dioxide Level 29 Chloride Level 98 Creatinine 8.39 H Glucose Level 151 Potassium Level 4.7 Sodium Level 138 Bedside Glucose 132 Medications Current Medications Ondansetron HCl (Zofran Inj) 4 mg Q6H PRN IV NAUSEA AND/OR VOMITING; Start 09/19 at 08:30 Aspirin (Aspirin) 81 mg DAILY PO Last administered on 09/21/16 08:07; Admin Dose 81 MG; Start 09/19/16 at 09:00 Nitroglycerin (Nitroglycerin (Sl Tab) 0.4 Mg) 1 tab Q5M PRN SL CHEST PAIN; Start 09/19/16 at 08:30 Acetaminophen (Tylenol Tab) 650 mg Q6H PRN PO PAIN LEVEL 1-3 OR FEVER Last administered on 09/20/16 03:49; Admin Dose 650 MG; Start 09/19/16 at 08:30 Morphine Sulfate (morphine) 2 mg Q4H PRN IV PAIN LEVEL 7-10 Last administered on 09/21/16 01:19; Admin Dose 2 MG; Start 09/19/16 at 08:30 Heparin Sodium (Porcine) (Heparin (5000 Units/0.5 ml)) 5,000 unit Q12 SC Last administered on 09/21/16 08:12; Admin Dose 5,000 UNIT; Start 09/19/16 at 09:00 Amlodipine Besylate (Norvasc) 10 mg DAILY PO Last administered on 09/21/16 08: 08; Admin Dose 10 MG; Start 09/19/16 at 12:00 Diagnostic Test (Pha) (Accucheck) 1 ea 02 XX Last administered on 09/21/16 02: 33; Admin Dose 1 EA; Start 09/20/16 at 02:00 Miscellaneous Information 1 ea NOTE XX ; Start 09/19/16 at 12:30 Glucose (Glutose) 15 gm Q15M PRN PO DECREASED GLUCOSE; Start 09/19/16 at 12:30 Glucose (Glutose) 22.5 gm Q15M PRN PO DECREASED GLUCOSE; Start 09/19/16 at 12:30 Dextrose (D50w Syringe) 25 ml Q15M PRN IV DECREASED GLUCOSE; Start 09/19/16 at 12:30 Dextrose (D50w Syringe) 50 ml Q15M PRN IV DECREASED GLUCOSE; Start 09/19/16 at 12:30 Glucagon (Glucagen) 1 mg Q15M PRN IM DECREASED GLUCOSE; Start 09/19/16 at 12:30 Glucose (Glutose) 15 gm Q15M PRN BUCCAL DECREASED GLUCOSE; Start 09/19/16 at 12: 30 Hydralazine HCl (Apresoline) 10 mg Q6H PRN IV ELEVATED BLOOD PRESSURE Last administered on 09/20/16 19:48; Admin Dose 10 MG; Start 09/19/16 at 16:00 Acetaminophen/ Hydrocodone Bitart ([place] (5/325)) 1 tab Q6H PRN PO PAIN LEVEL 4 -7 Last administered on 09/20/16 11:28; Admin Dose 1 TAB; Start 09/19/16 at 17:00 Labetalol HCl (Labetalol) 20 mg Q2 PRN IV SBP>170 Last administered on 01:20; Admin Dose 20 MG; Start 09/19/16 at 17:00 Clonidine (Catapres) 0.2 mg Q6H PRN PO ELEVATED SYSTOLIC BP Last administered on 09/20/16 23:30; Admin Dose 0.2 MG; Start 09/19/16 at 23:30 Zolpidem Tartrate (Ambien) 5 mg HS PRN PO INSOMNIA Last administered on 23:30; Admin Dose 5 MG; Start 09/19/16 at 20:30 Lisinopril (Zestril) 40 mg DAILY PO Last administered on 09/21/16 08:08; Admin Dose 40 MG; Start 09/21/16 at 09:00 Clonidine (Catapres) 0.2 mg Q6 PO Last administered on 09/21/16 05:50; Admin Dose 0.2 MG; Start 09/21/16 at 01:30 Assessment/Plan Chief Complaint/Hosp Course 1. End-stage renal disease. The patient is on dialysis Friday, , Friday. Had hemodialysis yesterday, tolerated well. -adjust meds, watch volume status. 2. Hypertensive urgency in part due to increased intravascular volume. Continue blood pressure medications. Continue ultrafiltration with dialysis. adjust meds. 3. Volume overload. Will continue ultrafiltration dialysis. The patient is clinically improving. 4. Hyperkalemia secondary to end-stage renal disease, resolved. 5. Mineral bone disorder. Continue to monitor calcium and phosphorus levels. 6. Acute respiratory failure secondary to pulmonary edema. Continue current medical management. Continue dialysis. 7. Low grade fever, Sepsis inflammatory response syndrome. Continue to monitor. Problems: LUIZ COUCH MD Sep 21, 2016 08:24
[2016-09-21] MEDS ORDERED: LISINOPRIL 20 MG TAB PO SCH (09:00)
--- NOTE | 2016-09-21 12:27 | PN ---
Date/Time of Note Date/Time of Note DATE: 09/21/16 TIME: 12:13 Assessment/Plan VTE Prophylaxis VTE Prophylaxis Intervention: heparin Lines/Catheters IV Catheter Type (from Nrs): Saline Lock Urinary Cath still in place: No Assessment/Plan Assessment/Plan PROBLEMS: Acute Resp Distress 2/2 Pulm Edema from ESRD: improved * Echo showed mild systolic dysfxn Hypertensive urgency likely 2/2 Volume OD: improved HTN: Control still suboptimal End-stage renal disease on dialysis Pre DM with Hyperglycemia: A1C at 5.2: improved control Anemia of CKD PLAN: Continue in-house HD per renal and supportive care Add BB to regimen in view of systolic dyfxn Adjust diet to 1800 ADA / renal for improved BS control Continue current antihypertensives Wean off O2 as tolerated / Will consider chest CT if unable to wean PPx- Heparin Subjective 24 Hr Interval Summary Free Text/Dictation Patient seen and examined. feels better, but still occasionally SOB felt dizzy after dialysis yesterday still makes urine Exam/Review of Systems Vital Signs Vitals Vital Signs Date Time Temp Pulse Resp B/P Pulse Ox O2 Delivery O2 Flow Rate FiO2 09/21/16 12:08 77 09/21/16 10:59 98.2 20 166/82 96 09/21/16 00:29 2.0 09/21/16 00:28 Nasal Cannula Intake and Output 09/20/16 09/20/16 09/21/16 15:00 23:00 07:00 Intake Total 920 ml Output Total 5800 ml Balance -4880 ml Exam Constitutional: alert, oriented Respiratory: basal crackles on the R Cardiovascular: regular rate and rhythm Gastrointestinal: soft, No distended Musculoskeletal: nl extremities to inspection Results Result Diagram: 09/20/16 0519 09/21/16 0606 Results 24 hrs Laboratory Tests Test 09/20/16 17:00 09/20/16 20:58 09/21/16 02:32 09/21/16 06:06 Bedside Glucose 154 184 144 Anion Gap 16 Blood Urea Nitrogen 39 H Calcium Level 8.6 Carbon Dioxide Level 29 Chloride Level 98 Creatinine 8.39 H Glucose Level 151 Potassium Level 4.7 Sodium Level 138 Test 09/21/16 07:44 09/21/16 11:32 Bedside Glucose 132 161 Medications Medications Current Medications Ondansetron HCl (Zofran Inj) 4 mg Q6H PRN IV NAUSEA AND/OR VOMITING; Start 09/19 at 08:30 Aspirin (Aspirin) 81 mg DAILY PO Last administered on 09/21/16 08:07; Admin Dose 81 MG; Start 09/19/16 at 09:00 Nitroglycerin (Nitroglycerin (Sl Tab) 0.4 Mg) 1 tab Q5M PRN SL CHEST PAIN; Start 09/19/16 at 08:30 Acetaminophen (Tylenol Tab) 650 mg Q6H PRN PO PAIN LEVEL 1-3 OR FEVER Last administered on 09/20/16 03:49; Admin Dose 650 MG; Start 09/19/16 at 08:30 Morphine Sulfate (morphine) 2 mg Q4H PRN IV PAIN LEVEL 7-10 Last administered on 09/21/16 01:19; Admin Dose 2 MG; Start 09/19/16 at 08:30 Heparin Sodium (Porcine) (Heparin (5000 Units/0.5 ml)) 5,000 unit Q12 SC Last administered on 09/21/16 08:12; Admin Dose 5,000 UNIT; Start 09/19/16 at 09:00 Amlodipine Besylate (Norvasc) 10 mg DAILY PO Last administered on 09/21/16 08: 08; Admin Dose 10 MG; Start 09/19/16 at 12:00 Diagnostic Test (Pha) (Accucheck) 1 ea 02 XX Last administered on 09/21/16 02: 33; Admin Dose 1 EA; Start 09/20/16 at 02:00 Miscellaneous Information 1 ea NOTE XX ; Start 09/19/16 at 12:30 Glucose (Glutose) 15 gm Q15M PRN PO DECREASED GLUCOSE; Start 09/19/16 at 12:30 Glucose (Glutose) 22.5 gm Q15M PRN PO DECREASED GLUCOSE; Start 09/19/16 at 12:30 Dextrose (D50w Syringe) 25 ml Q15M PRN IV DECREASED GLUCOSE; Start 09/19/16 at 12:30 Dextrose (D50w Syringe) 50 ml Q15M PRN IV DECREASED GLUCOSE; Start 09/19/16 at 12:30 Glucagon (Glucagen) 1 mg Q15M PRN IM DECREASED GLUCOSE; Start 09/19/16 at 12:30 Glucose (Glutose) 15 gm Q15M PRN BUCCAL DECREASED GLUCOSE; Start 09/19/16 at 12: 30 Hydralazine HCl (Apresoline) 10 mg Q6H PRN IV ELEVATED BLOOD PRESSURE Last administered on 09/20/16 19:48; Admin Dose 10 MG; Start 09/19/16 at 16:00 Acetaminophen/ Hydrocodone Bitart ([place] (5/325)) 1 tab Q6H PRN PO PAIN LEVEL 4 -7 Last administered on 09/20/16 11:28; Admin Dose 1 TAB; Start 09/19/16 at 17:00 Labetalol HCl (Labetalol) 20 mg Q2 PRN IV SBP>170 Last administered on 01:20; Admin Dose 20 MG; Start 09/19/16 at 17:00 Clonidine (Catapres) 0.2 mg Q6H PRN PO ELEVATED SYSTOLIC BP Last administered on 09/20/16 23:30; Admin Dose 0.2 MG; Start 09/19/16 at 23:30 Zolpidem Tartrate (Ambien) 5 mg HS PRN PO INSOMNIA Last administered on 23:30; Admin Dose 5 MG; Start 09/19/16 at 20:30 Lisinopril (Zestril) 40 mg DAILY PO Last administered on 09/21/16 08:08; Admin Dose 40 MG; Start 09/21/16 at 09:00 Clonidine (Catapres) 0.2 mg Q6 PO Last administered on 09/21/16 11:45; Admin Dose 0.2 MG; Start 09/21/16 at 01:30 LEV CANO Sep 21, 2016 12:24
[2016-09-21] MEDS: FUROSEMIDE 20 MG INJ IV SCH (13:57)
[2016-09-21] MEDS: METOPROLOL 25 MG TAB PO SCH ×2 (13:58→20:32)
[2016-09-21] MEDS: ACETAMINOPHEN 325 MG TAB PO PRN (23:51)
[2016-09-22] VITALS (24 sets, daily range): BP systolic 143–194; BP diastolic 73–99; PULSE 69–95; RESP 18–20
[2016-09-22] MEDS: ZOLPIDEM 5 MG TAB PO PRN (00:42)
[2016-09-22] MEDS: ACCUCHECK XX SCH (02:00)
[2016-09-22] MEDS: hydrALAzine 20 MG INJ IV PRN ×2 (04:44→22:29)
[2016-09-22 07:05] LABS: BASOPHIL # 0.1 10^3/ul (0.0-0.1); BASOPHILS % 0.6 % (0.0-2.0); EOSINOPHILS # 0.7 10^3/ul (0.0-0.5); EOSINOPHILS % 6.2 % (0.0-7.0); HEMATOCRIT 30.7 % (42.0-52.0); HEMOGLOBIN 10.7 g/dl (14.0-18.0); LYMPHOCYTES # 1.8 10^3/ul (0.8-2.9); LYMPHOCYTES % 15.9 % (15.0-51.0); MEAN CORPUSCULAR HEMOGLOBIN 33.1 pg (29.0-33.0); MEAN CORPUSCULAR HGB CONC 34.8 g/dl (32.0-37.0); MEAN CORPUSCULAR VOLUME 95.1 fl (82.0-101.0); MEAN PLATELET VOLUME 8.7 fl (7.4-10.4); MONOCYTE # 1.4 10^3/ul (0.3-0.9); MONOCYTES % 12.6 % (0.0-11.0); NEUTROPHIL # 7.2 10^3/ul (1.6-7.5); NEUTROPHILS % 64.7 % (39.0-77.0); PLATELET COUNT 202 10^3/UL (140-440); RED BLOOD COUNT 3.23 10^6/ul (4.70-6.10); RED CELL DISTRIBUTION WIDTH 14.8 % (11.5-14.5); UNCORRECTED WBC 11.1 10^3/ul (4.8-10.8); WHITE BLOOD COUNT 11.1 10^3/ul (4.8-10.8)
[2016-09-22 07:09] LABS: CONDITION 1; LH ANALYZER COMMENTS 1
[2016-09-22 07:22] LABS: POTASSIUM 5.2 mmol/L (3.5-5.1)
[2016-09-22 07:24] LABS: CREATININE 11.36 mg/dl (0.61-1.24)
[2016-09-22 07:25] LABS: CALCIUM 8.5 mg/dl (8.4-10.2); MAGNESIUM 2.5 mg/dl (1.7-2.5); PHOSPHORUS 4.1 mg/dl (2.5-4.9)
[2016-09-22] MEDS: INSULIN ASPART [NOVOLOG] 3 ML PEN SC SCH ×4 (07:55→21:00)
[2016-09-22] MEDS: LISINOPRIL 20 MG TAB PO SCH (08:20)
[2016-09-22] MEDS: ASPIRIN 81 MG TAB PO SCH (08:20)
[2016-09-22] MEDS: METOPROLOL 25 MG TAB PO SCH ×2 (08:21→21:26)
[2016-09-22] MEDS: ACETAMINOPHEN 325 MG TAB PO PRN ×3 (08:21→21:25)
[2016-09-22] MEDS: AMLODIPINE 10 MG TAB PO SCH (08:22)
[2016-09-22] MEDS: HEPARIN 5,000 UNIT/0.5 ML SYG SC SCH ×2 (08:23→21:30)
[2016-09-22] MEDS: FUROSEMIDE 20 MG INJ IV SCH (08:24)
--- NOTE | 2016-09-22 09:11 | CONS ---
Date/Time of Note Date/Time of Note DATE: 09/22/16 TIME: 09:10 Consult Date/Type/Reason Admit Date/Time Sep 19, 2016 at 01:32 Type of Consultation: nephro Subjective pt. refused HD yesterday. Planned HD today. no distress Objective Vital Signs Date Time Temp Pulse Resp B/P Pulse Ox O2 Delivery O2 Flow Rate FiO2 09/22/16 08:43 91 09/22/16 08:11 100.2 18 159/73 98 09/22/16 03:31 2.0 09/21/16 00:28 Nasal Cannula Intake and Output 09/21/16 09/21/16 09/22/16 15:00 23:00 07:00 Intake Total 600 ml 680 ml 500 ml Balance 600 ml 680 ml 500 ml Results/Medications Result Diagram: 09/22/16 0547 09/22/16 0547 Results 24 hrs Laboratory Tests Test 09/21/16 11:32 09/21/16 17:34 09/21/16 20:29 09/22/16 05:47 Bedside Glucose 161 161 164 Anion Gap 21 H Basophils # 0.1 Basophils % 0.6 Blood Morphology Comment Blood Urea Nitrogen 60 H Calcium Level 8.5 Carbon Dioxide Level 25 Chloride Level 95 L Creatine Kinase 215 H Creatinine 11.36 #H Eosinophils # 0.7 H Eosinophils % 6.2 Glucose Level 95 # Hematocrit 30.7 L Hemoglobin 10.7 L Lymphocytes # 1.8 Lymphocytes % 15.9 Magnesium Level 2.5 Mean Corpuscular Hemoglobin 33.1 H Mean Corpuscular Hemoglobin Concent 34.8 Mean Corpuscular Volume 95.1 Mean Platelet Volume 8.7 Monocytes # 1.4 H Monocytes % 12.6 H Neutrophils # 7.2 Neutrophils % 64.7 Nucleated Red Blood Cells # 0.0 Nucleated Red Blood Cells % 0.0 Phosphorus Level 4.1 Platelet Count 202 Potassium Level 5.2 H Red Blood Count 3.23 L Red Cell Distribution Width 14.8 H Sodium Level 136 White Blood Count 11.1 #H Test 09/22/16 07:20 Bedside Glucose 108 Medications Current Medications Ondansetron HCl (Zofran Inj) 4 mg Q6H PRN IV NAUSEA AND/OR VOMITING; Start 09/19 at 08:30 Aspirin (Aspirin) 81 mg DAILY PO Last administered on 09/22/16t 08:20; Admin Dose 81 MG; Start 09/19/16 at 09:00 Nitroglycerin (Nitroglycerin (Sl Tab) 0.4 Mg) 1 tab Q5M PRN SL CHEST PAIN; Start 09/19/16 at 08:30 Acetaminophen (Tylenol Tab) 650 mg Q6H PRN PO PAIN LEVEL 1-3 OR FEVER Last administered on 09/22/16 08:21; Admin Dose 650 MG; Start 09/19/16 at 08:30 Morphine Sulfate (morphine) 2 mg Q4H PRN IV PAIN LEVEL 7-10 Last administered on 09/21/16 01:19; Admin Dose 2 MG; Start 09/19/16 at 08:30 Heparin Sodium (Porcine) (Heparin (5000 Units/0.5 ml)) 5,000 unit Q12 SC Last administered on 09/22/16 08:23; Admin Dose 5,000 UNIT; Start 09/19/16 at 09:00 Amlodipine Besylate (Norvasc) 10 mg DAILY PO Last administered on 09/22/16 08: 22; Admin Dose 10 MG; Start 09/19/16 at 12:00 Diagnostic Test (Pha) (Accucheck) 1 ea 02 XX Last administered on 09/21/16 02: 33; Admin Dose 1 EA; Start 09/20/16 at 02:00 Miscellaneous Information 1 ea NOTE XX ; Start 09/19/16 at 12:30 Glucose (Glutose) 15 gm Q15M PRN PO DECREASED GLUCOSE; Start 09/19/16 at 12:30 Glucose (Glutose) 22.5 gm Q15M PRN PO DECREASED GLUCOSE; Start 09/19/16 at 12:30 Dextrose (D50w Syringe) 25 ml Q15M PRN IV DECREASED GLUCOSE; Start 09/19/16 at 12:30 Dextrose (D50w Syringe) 50 ml Q15M PRN IV DECREASED GLUCOSE; Start 09/19/16 at 12:30 Glucagon (Glucagen) 1 mg Q15M PRN IM DECREASED GLUCOSE; Start 09/19/16 at 12:30 Glucose (Glutose) 15 gm Q15M PRN BUCCAL DECREASED GLUCOSE; Start 09/19/16 at 12: 30 Hydralazine HCl (Apresoline) 10 mg Q6H PRN IV ELEVATED BLOOD PRESSURE Last administered on 09/22/16 04:44; Admin Dose 10 MG; Start 09/19/16 at 16:00 Acetaminophen/ Hydrocodone Bitart ([place] (5/325)) 1 tab Q6H PRN PO PAIN LEVEL 4 -7 Last administered on 09/20/16 11:28; Admin Dose 1 TAB; Start 09/19/16 at 17:00 Labetalol HCl (Labetalol) 20 mg Q2 PRN IV SBP>170 Last administered on 01:20; Admin Dose 20 MG; Start 09/19/16 at 17:00 Clonidine (Catapres) 0.2 mg Q6H PRN PO ELEVATED SYSTOLIC BP Last administered on 09/20/16 23:30; Admin Dose 0.2 MG; Start 09/19/16 at 23:30 Zolpidem Tartrate (Ambien) 5 mg HS PRN PO INSOMNIA Last administered on 00:42; Admin Dose 5 MG; Start 09/19/16 at 20:30 Lisinopril (Zestril) 40 mg DAILY PO Last administered on 09/22/16 08:20; Admin Dose 40 MG; Start 09/21/16 at 09:00 Clonidine (Catapres) 0.2 mg Q6 PO Last administered on 09/22/16 06:12; Admin Dose 0.2 MG; Start 09/21/16 at 01:30 Metoprolol Tartrate (Lopressor) 25 mg BID PO Last administered on 09/22/16 08: 21; Admin Dose 25 MG; Start 09/21/16 at 12:30 Furosemide (Lasix) 20 mg DAILY IV Last administered on 09/22/16 08:24; Admin Dose 20 MG; Start 09/21/16 at 13:00 Assessment/Plan Chief Complaint/Hosp Course 1. End-stage renal disease. The patient is on dialysis Friday, , Friday. Refused hemodialysis yesterday,HD planned this am -adjust meds, watch volume status. 2. Hypertensive urgency in part due to increased intravascular volume. Continue blood pressure medications. Continue ultrafiltration with dialysis. adjust meds. 3. Volume overload. Will continue ultrafiltration dialysis. The patient is clinically improving. 4. Hyperkalemia secondary to end-stage renal disease, resolved. 5. Mineral bone disorder. Continue to monitor calcium and phosphorus levels. 6. Acute respiratory failure secondary to pulmonary edema. Continue current medical management. Continue dialysis. 7. Low grade fever, Sepsis inflammatory response syndrome. Continue to monitor. Problems: LUIZ COUCH MD Sep 22, 2016 09:11
[2016-09-22] MEDS ORDERED: VANCOMYCIN IV PER PHARMACY XX SCH (12:30)
[2016-09-22] MEDS: PIPER-TAZO 2.25 GM (PMX) 50 ML IVPB SCH ×2 (14:14→22:20)
[2016-09-22] MEDS ORDERED: VANCOMYCIN 1.5 GM in SOD CHLORIDE 0.9% 250 ML IVPB SCH (14:30)
--- NOTE | 2016-09-22 16:05 | PN ---
Date/Time of Note Date/Time of Note DATE: 09/22/16 TIME: 15:49 Assessment/Plan VTE Prophylaxis VTE Prophylaxis Intervention: heparin Lines/Catheters IV Catheter Type (from Nrs): Saline Lock Urinary Cath still in place: No Assessment/Plan Assessment/Plan PROBLEMS: Fever with Leucocytosis Acute Resp Distress 2/2 Pulm Edema from ESRD: improved * Echo showed mild systolic dysfxn Hypertensive urgency likely 2/2 Volume OD: improved HTN: Control improving End-stage renal disease on hemodialysis Diabetes Type 2: * A1C is likely falsely low in the setting of ESRD * Fasting levels still mildly elevated on 1800 calorie diet Anemia of CKD Hyperkalemia Mild Rhabdomyolysis PLAN: Commence sepsis workup with blood and urine cultures, also r/o influenza Commence broad spectrum abx Note that patient has no lines concerning for line sepsis Continue in-house HD per renal / IV lasix as pt still makes urine / supportive care Continue current antihypertensives Wean off O2 as tolerated / Will consider chest CT if unable to wean PPx- Heparin Subjective 24 Hr Interval Summary Constitutional: chills, febrile Respiratory: No shortness of breath Exam/Review of Systems Vital Signs Vitals Vital Signs Date Time Temp Pulse Resp B/P Pulse Ox O2 Delivery O2 Flow Rate FiO2 09/22/16 15:43 100.1 90 18 181/83 98 09/22/16 12:13 Room Air 09/22/16 03:31 2.0 Intake and Output 09/21/16 09/21/16 09/22/16 15:00 23:00 07:00 Intake Total 600 ml 680 ml 500 ml Balance 600 ml 680 ml 500 ml Exam Constitutional: alert, oriented Respiratory: reduced air entry bilaterally, mildly improved basal crackles on the R Cardiovascular: regular rate and rhythm Gastrointestinal: soft, No distended Musculoskeletal: nl extremities to inspection Results Result Diagram: 09/22/16 0547 09/22/16 0547 Results 24 hrs Laboratory Tests Test 09/21/16 17:34 09/21/16 20:29 09/22/16 05:47 09/22/16 07:20 Bedside Glucose 161 164 108 Anion Gap 21 H Basophils # 0.1 Basophils % 0.6 Blood Morphology Comment Blood Urea Nitrogen 60 H Calcium Level 8.5 Carbon Dioxide Level 25 Chloride Level 95 L Creatine Kinase 215 H Creatinine 11.36 #H Eosinophils # 0.7 H Eosinophils % 6.2 Glucose Level 95 # Hematocrit 30.7 L Hemoglobin 10.7 L Lymphocytes # 1.8 Lymphocytes % 15.9 Magnesium Level 2.5 Mean Corpuscular Hemoglobin 33.1 H Mean Corpuscular Hemoglobin Concent 34.8 Mean Corpuscular Volume 95.1 Mean Platelet Volume 8.7 Monocytes # 1.4 H Monocytes % 12.6 H Neutrophils # 7.2 Neutrophils % 64.7 Nucleated Red Blood Cells # 0.0 Nucleated Red Blood Cells % 0.0 Phosphorus Level 4.1 Platelet Count 202 Potassium Level 5.2 H Red Blood Count 3.23 L Red Cell Distribution Width 14.8 H Sodium Level 136 White Blood Count 11.1 #H Test 09/22/16 11:33 Bedside Glucose 184 Medications Medications Current Medications Ondansetron HCl (Zofran Inj) 4 mg Q6H PRN IV NAUSEA AND/OR VOMITING; Start 09/19 at 08:30 Aspirin (Aspirin) 81 mg DAILY PO Last administered on 09/22/16 08:20; Admin Dose 81 MG; Start 09/19/16 at 09:00 Nitroglycerin (Nitroglycerin (Sl Tab) 0.4 Mg) 1 tab Q5M PRN SL CHEST PAIN; Start 09/19/16 at 08:30 Acetaminophen (Tylenol Tab) 650 mg Q6H PRN PO PAIN LEVEL 1-3 OR FEVER Last administered on 09/22/16 08:21; Admin Dose 650 MG; Start 09/19/16 at 08:30 Morphine Sulfate (morphine) 2 mg Q4H PRN IV PAIN LEVEL 7-10 Last administered on 09/21/16 01:19; Admin Dose 2 MG; Start 09/19/16 at 08:30 Heparin Sodium (Porcine) (Heparin (5000 Units/0.5 ml)) 5,000 unit Q12 SC Last administered on 09/22/16 08:23; Admin Dose 5,000 UNIT; Start 09/19/16 at 09:00 Amlodipine Besylate (Norvasc) 10 mg DAILY PO Last administered on 09/22/16 08: 22; Admin Dose 10 MG; Start 09/19/16 at 12:00 Diagnostic Test (Pha) (Accucheck) 1 ea 02 XX Last administered on 09/21/16 02: 33; Admin Dose 1 EA; Start 09/20/16 at 02:00 Miscellaneous Information 1 ea NOTE XX ; Start 09/19/16 at 12:30 Glucose (Glutose) 15 gm Q15M PRN PO DECREASED GLUCOSE; Start 09/19/16 at 12:30 Glucose (Glutose) 22.5 gm Q15M PRN PO DECREASED GLUCOSE; Start 09/19/16 at 12:30 Dextrose (D50w Syringe) 25 ml Q15M PRN IV DECREASED GLUCOSE; Start 09/19/16 at 12:30 Dextrose (D50w Syringe) 50 ml Q15M PRN IV DECREASED GLUCOSE; Start 09/19/16 at 12:30 Glucagon (Glucagen) 1 mg Q15M PRN IM DECREASED GLUCOSE; Start 09/19/16 at 12:30 Glucose (Glutose) 15 gm Q15M PRN BUCCAL DECREASED GLUCOSE; Start 09/19/16 at 12: 30 Hydralazine HCl (Apresoline) 10 mg Q6H PRN IV ELEVATED BLOOD PRESSURE Last administered on 09/22/16 04:44; Admin Dose 10 MG; Start 09/19/16 at 16:00 Acetaminophen/ Hydrocodone Bitart ([place] (5/325)) 1 tab Q6H PRN PO PAIN LEVEL 4 -7 Last administered on 09/20/16 11:28; Admin Dose 1 TAB; Start 09/19/16 at 17:00 Labetalol HCl (Labetalol) 20 mg Q2 PRN IV SBP>170 Last administered on 01:20; Admin Dose 20 MG; Start 09/19/16 at 17:00 Clonidine (Catapres) 0.2 mg Q6H PRN PO ELEVATED SYSTOLIC BP Last administered on 09/20/16 23:30; Admin Dose 0.2 MG; Start 09/19/16 at 23:30 Zolpidem Tartrate (Ambien) 5 mg HS PRN PO INSOMNIA Last administered on 00:42; Admin Dose 5 MG; Start 09/19/16 at 20:30 Lisinopril (Zestril) 40 mg DAILY PO Last administered on 09/22/16 08:20; Admin Dose 40 MG; Start 09/21/16 at 09:00 Clonidine (Catapres) 0.2 mg Q6 PO Last administered on 09/22/16 06:12; Admin Dose 0.2 MG; Start 09/21/16 at 01:30 Metoprolol Tartrate (Lopressor) 25 mg BID PO Last administered on 09/22/16 08: 21; Admin Dose 25 MG; Start 09/21/16 at 12:30 Furosemide 20 mg 20 mg DAILY IV Last administered on 09/22/16 08:24; Admin Dose 20 MG; Start 09/21/16 at 13:00 Piperacillin Sod/ Tazobactam Sod 50 ml @ 100 mls/hr Q8 IVPB Last administered on 09/22/16 14:14; Admin Dose 100 MLS/HR; Start 09/22/16 at 13:30 Vancomycin HCl/ Sodium Chloride (Vancocin/NS) 250 ml @ 83.333 mls/ hr 1430 IVPB Last administered on 09/22/16 14:59; Admin Dose 83.333 MLS/HR; Start at 14:30; Stop 09/22/16 at 17:29 LEV CANO Sep 22, 2016 15:59
[2016-09-23] VITALS (14 sets, daily range): BP systolic 133–167; BP diastolic 64–82; PULSE 64–90; RESP 18–20
[2016-09-23] MEDS: ACCUCHECK XX SCH (02:00)
[2016-09-23] MEDS: ZOLPIDEM 5 MG TAB PO PRN (02:36)
[2016-09-23] MEDS: HYDROCODONE/APAP (5/325) TAB PO PRN (02:36)
[2016-09-23] MEDS: PIPER-TAZO 2.25 GM (PMX) 50 ML IVPB SCH (06:13)
[2016-09-23 06:15] LABS: BASOPHILS % 0.2 % (0.0-2.0); EOSINOPHILS # 0.5 10^3/ul (0.0-0.5); EOSINOPHILS % 5.2 % (0.0-7.0); HEMATOCRIT 28.1 % (42.0-52.0); LYMPHOCYTES # 1.1 10^3/ul (0.8-2.9); MEAN CORPUSCULAR HEMOGLOBIN 34.7 pg (29.0-33.0); MEAN CORPUSCULAR HGB CONC 35.4 g/dl (32.0-37.0); MEAN CORPUSCULAR VOLUME 97.8 fl (82.0-101.0); MEAN PLATELET VOLUME 8.4 fl (7.4-10.4); MONOCYTE # 1.1 10^3/ul (0.3-0.9); MONOCYTES % 11.5 % (0.0-11.0); NEUTROPHIL # 6.6 10^3/ul (1.6-7.5); NEUTROPHILS % 71.1 % (39.0-77.0); PLATELET COUNT 191 10^3/UL (140-440); RED BLOOD COUNT 2.88 10^6/ul (4.70-6.10); RED CELL DISTRIBUTION WIDTH 14.6 % (11.5-14.5); UNCORRECTED WBC 9.3 10^3/ul (4.8-10.8); WHITE BLOOD COUNT 9.3 10^3/ul (4.8-10.8)
[2016-09-23 06:21] LABS: CONDITION 1; LH ANALYZER COMMENTS 1
[2016-09-23 06:34] LABS: POTASSIUM 4.3 mmol/L (3.5-5.1)
[2016-09-23 06:36] LABS: CREATININE 8.92 mg/dl (0.61-1.24)
[2016-09-23] MEDS: INSULIN ASPART [NOVOLOG] 3 ML PEN SC SCH ×4 (07:55→20:35)
[2016-09-23] MEDS: ACETAMINOPHEN 325 MG TAB PO PRN (09:23)
[2016-09-23] MEDS: ASPIRIN 81 MG TAB PO SCH (09:23)
[2016-09-23] MEDS: FUROSEMIDE 20 MG INJ IV SCH (09:24)
[2016-09-23] MEDS: METOPROLOL 25 MG TAB PO SCH ×2 (09:24→20:40)
[2016-09-23] MEDS: LISINOPRIL 20 MG TAB PO SCH (09:25)
[2016-09-23] MEDS: AMLODIPINE 10 MG TAB PO SCH (09:25)
[2016-09-23] MEDS: HEPARIN 5,000 UNIT/0.5 ML SYG SC SCH ×2 (09:39→20:49)
--- NOTE | 2016-09-23 10:24 | PN ---
DATE: 09/23/2016 SUBJECTIVE: The patient is stable, had hemodialysis yesterday, tolerated well. No other events not ed. OBJECTIVE: VITAL SIGNS: Blood pressure is 164/79, respirations 18, pulse 75, temperature 98.3. I's and O's reviewed. HEENT: Head is normocephalic. NECK: Supple. HEART: Regular rate. LUNGS: Show diminished breath sounds at the base. ABDOMEN: Soft, nontender to palpation. No rebound or guarding. EXTREMITIES: Negative for clubbing, cyanosis, no edema. DERMATOLOGIC: No rashes. MUSCULOSKELETAL: No joint effusions. NEUROLOGIC: No change in exam. MEDICATIONS: Reviewed. LABORATORY DATA: Showed sodium 136, potassium 4.3, chloride 96, BUN 43, creatinine 8.92. White cou nt 9.3, hemoglobin 10.0, hematocrit 28.1, platelet count is 191. ASSESSMENT AND PLAN: 1. End-stage renal disease. The patient had dialysis is Friday, , Friday. The patient h ad hemodialysis yesterday tolerated well. Anticipate dialysis tomorrow. 2. Hypertensive urgency in part due to increased intravascular volume. Continue ultrafiltration wi dialysis. Continue current blood pressure regimen. 3. Volume overload. Continue ultrafiltration with dialysis. 4. Hyperkalemia secondary to end-stage renal disease, resolved. 5. Mineral bone disorder. Continue to monitor calcium and phosphorus levels. 6. Acute respiratory failure secondary to pulmonary edema, volume overload. Clinically improving. The patient is currently on room air. 7. Low grade fever, sepsis inflammatory response syndrome. Continue to monitor. Cultures have been negative to date. Dictated By: GIOVANA HOUSE/GERARDO Conf#: [id number] DID#: [id number]
--- NOTE | 2016-09-23 10:40 | PN ---
Date/Time of Note Date/Time of Note DATE: 09/23/16 TIME: 10:35 Assessment/Plan VTE Prophylaxis VTE Prophylaxis Intervention: heparin Lines/Catheters IV C[facility]ter Type [facility]from [facility] Saline Lock Urinary Cath still in place: No Assessment/Plan Assessment/Plan 1. SIRS - unknown source, blood cultures negative, influ negative - stop antibiotics - recheck labs and vitals 2. Acute Resp Distress 2/2 Pulm Edema from ESRD: improved - f/u renal consult * Echo showed mild systolic dysfxn 3. Hypertensive urgency likely 2/2 Volume OD: improved 4. HTN essential - Control improving 5. End-stage renal disease on hemodialysis - as per renal, //Fri 6. Diabetes Type 2: * A1C is likely falsely low in the setting of ESRD * Fasting levels still mildly elevated on 1800 calorie diet 7. Anemia of CKD - stable 8. Hyperkalemia - resolved 9. Mild Rhabdomyolysis - improved 10. GI ppx - none 11. DVT ppx - heparin dispo - f/u recs, HD tomorrow - if improving, dc planning for tomorrow - if afebrile and no leukocytosis this progress note took greater than 30 minutes to complete Subjective 24 Hr Interval Summary Free Text/Dictation Patient states that he had a fever overnight. Otherwise no other acute complaints at this time. Spoke to him in regards to the care plan. 10 minutes spent. Exam/Review of Systems Vital Signs Vitals Vital Signs Date Time Temp Pulse Resp B/P Pulse Ox O2 Delivery O2 Flow Rate FiO2 09/23/16 09:05 74 09/23/16 08:24 98.3 18 164/79 98 09/23/16 02:43 2.0 09/22/16 12:13 Room Air Intake and Output 09/22/16 09/22/16 09/23/16 15:00 23:00 07:00 Intake Total 1350 ml 750 ml Output Total 3200 ml Balance -1850 ml 750 ml Exam Gen El: NAD, AAOx4 HEENT: NC/AT, PERRLA, EOMI, no pharyngeal erythema, no tonsillar exudates, no lymphadenopathy, no JVD, no carotid bruits NECK: supple, no thyromegaly THORAX: symmetrical, no obvious deformities CV: S1S2, RRR, no M/G/R Lungs: improved aeration, scattered basilar crackles, no wheezing or rhonchi appreciated Abd: soft, NT/ND, +BS, no rebound, no guarding, neg HSM EXT: no edema, no ecchymosis, no clubbing, FROM Neuro: CN II-XII grossly intact, no focal deficits Psych: good mentation, alert and oriented, good mood and affect Skin: C/D/I Results Result Diagram: 09/23/16 0529 09/23/16 0529 Results 24 hrs Laboratory Tests Test 09/22/16 11:33 09/22/16 17:36 09/22/16 20:34 09/23/16 05:29 Bedside Glucose 184 147 147 Anion Gap 17 H Basophils # 0.0 Basophils % 0.2 Blood Morphology Comment Blood Urea Nitrogen 43 #H Calcium Level 8.0 L Carbon Dioxide Level 27 Chloride Level 96 L Creatine Kinase 167 Creatinine 8.92 #H Eosinophils # 0.5 Eosinophils % 5.2 Glucose Level 129 Hematocrit 28.1 L Hemoglobin 10.0 L Lymphocytes # 1.1 Lymphocytes % 12.0 L Mean Corpuscular Hemoglobin 34.7 H Mean Corpuscular Hemoglobin Concent 35.4 Mean Corpuscular Volume 97.8 Mean Platelet Volume 8.4 Monocytes # 1.1 H Monocytes % 11.5 H Neutrophils # 6.6 Neutrophils % 71.1 Nucleated Red Blood Cells # 0.0 Nucleated Red Blood Cells % 0.0 Platelet Count 191 Potassium Level 4.3 Red Blood Count 2.88 L Red Cell Distribution Width 14.6 H Sodium Level 136 White Blood Count 9.3 Test 09/23/16 08:06 Bedside Glucose 119 Medications Medications Current Medications Ondansetron HCl (Zofran Inj) 4 mg Q6H PRN IV NAUSEA AND/OR VOMITING; Start 09/19 at 08:30 Aspirin (Aspirin) 81 mg DAILY PO Last administered on 09/23/16 09:23; Admin Dose 81 MG; Start 09/19/16 at 09:00 Nitroglycerin (Nitroglycerin (Sl Tab) 0.4 Mg) 1 tab Q5M PRN SL CHEST PAIN; Start 09/19/16 at 08:30 Acetaminophen (Tylenol Tab) 650 mg Q6H PRN PO PAIN LEVEL 1-3 OR FEVER Last administered on 09/23/16 09:23; Admin Dose 650 MG; Start 09/19/16 at 08:30 Morphine Sulfate (morphine) 2 mg Q4H PRN IV PAIN LEVEL 7-10 Last administered on 09/21/16 01:19; Admin Dose 2 MG; Start 09/19/16 at 08:30 Heparin Sodium (Porcine) (Heparin (5000 Units/0.5 ml)) 5,000 unit Q12 SC Last administered on 09/23/16 09:39; Admin Dose 5,000 UNIT; Start 09/19/16 at 09:00 Amlodipine Besylate (Norvasc) 10 mg DAILY PO Last administered on 09/23/16 09: 25; Admin Dose 10 MG; Start 09/19/16 at 12:00 Diagnostic Test (Pha) (Accucheck) 1 ea 02 XX Last administered on 09/21/16 02: 33; Admin Dose 1 EA; Start 09/20/16 at 02:00 Miscellaneous Information 1 ea NOTE XX ; Start 09/19/16 at 12:30 Glucose (Glutose) 15 gm Q15M PRN PO DECREASED GLUCOSE; Start 09/19/16 at 12:30 Glucose (Glutose) 22.5 gm Q15M PRN PO DECREASED GLUCOSE; Start 09/19/16 at 12:30 Dextrose (D50w Syringe) 25 ml Q15M PRN IV DECREASED GLUCOSE; Start 09/19/16 at 12:30 Dextrose (D50w Syringe) 50 ml Q15M PRN IV DECREASED GLUCOSE; Start 09/19/16 at 12:30 Glucagon (Glucagen) 1 mg Q15M PRN IM DECREASED GLUCOSE; Start 09/19/16 at 12:30 Glucose (Glutose) 15 gm Q15M PRN BUCCAL DECREASED GLUCOSE; Start 09/19/16 at 12: 30 Hydralazine HCl (Apresoline) 10 mg Q6H PRN IV ELEVATED BLOOD PRESSURE Last administered on 09/22/16 22:29; Admin Dose 10 MG; Start 09/19/16 at 16:00 Acetaminophen/ Hydrocodone Bitart ([place] (5/325)) 1 tab Q6H PRN PO PAIN LEVEL 4 -7 Last administered on 09/23/16 02:36; Admin Dose 1 TAB; Start 09/19/16 at 17:00 Labetalol HCl (Labetalol) 20 mg Q2 PRN IV SBP>170 Last administered on 01:20; Admin Dose 20 MG; Start 09/19/16 at 17:00 Clonidine (Catapres) 0.2 mg Q6H PRN PO ELEVATED SYSTOLIC BP Last administered on 09/20/16 23:30; Admin Dose 0.2 MG; Start 09/19/16 at 23:30 Zolpidem Tartrate (Ambien) 5 mg HS PRN PO INSOMNIA Last administered on 02:36; Admin Dose 5 MG; Start 09/19/16 at 20:30 Lisinopril (Zestril) 40 mg DAILY PO Last administered on 09/23/16 09:25; Admin Dose 40 MG; Start 09/21/16 at 09:00 Clonidine (Catapres) 0.2 mg Q6 PO Last administered on 09/23/16 06:13; Admin Dose 0.2 MG; Start 09/21/16 at 01:30 Metoprolol Tartrate (Lopressor) 25 mg BID PO Last administered on 09/23/16 09: 24; Admin Dose 25 MG; Start 09/21/16 at 12:30 Furosemide 20 mg 20 mg DAILY IV Last administered on 09/23/16 09:24; Admin Dose 20 MG; Start 09/21/16 at 13:00 Piperacillin Sod/ Tazobactam Sod (Zosyn 2.25gm/ 50ml (Pmx)) 50 ml @ 100 mls/hr Q8 IVPB Last administered on 09/23/16 06:13; Admin Dose 100 MLS/HR; Start at 13:30 LIZZ FLOOD MD Sep 23, 2016 10:40
[2016-09-24] VITALS (19 sets, daily range): BP systolic 158–190; BP diastolic 86–92; PULSE 68–98; RESP 17–20
[2016-09-24] MEDS: ACCUCHECK XX SCH (02:00)
[2016-09-24] MEDS: ACETAMINOPHEN 325 MG TAB PO PRN ×2 (06:50→17:58)
[2016-09-24 08:38] LABS: BASOPHIL # 0.1 10^3/ul (0.0-0.1); BASOPHILS % 0.7 % (0.0-2.0); EOSINOPHILS # 0.6 10^3/ul (0.0-0.5); EOSINOPHILS % 8.6 % (0.0-7.0); HEMATOCRIT 26.9 % (42.0-52.0); HEMOGLOBIN 10.4 g/dl (14.0-18.0); LYMPHOCYTES % 13.6 % (15.0-51.0); MEAN CORPUSCULAR HEMOGLOBIN 40.5 pg (29.0-33.0); MEAN CORPUSCULAR HGB CONC 38.7 g/dl (32.0-37.0); MEAN CORPUSCULAR VOLUME 104.7 fl (82.0-101.0); MEAN PLATELET VOLUME 8.6 fl (7.4-10.4); MONOCYTE # 0.8 10^3/ul (0.3-0.9); MONOCYTES % 10.6 % (0.0-11.0); NEUTROPHIL # 4.9 10^3/ul (1.6-7.5); NEUTROPHILS % 66.5 % (39.0-77.0); PLATELET COUNT 215 10^3/UL (140-440); POTASSIUM 4.7 mmol/L (3.5-5.1); RED BLOOD COUNT 2.57 10^6/ul (4.70-6.10); RED CELL DISTRIBUTION WIDTH 14.6 % (11.5-14.5); UNCORRECTED WBC 7.4 10^3/ul (4.8-10.8); WHITE BLOOD COUNT 7.4 10^3/ul (4.8-10.8)
[2016-09-24 08:40] LABS: CREATININE 11.71 mg/dl (0.61-1.24)
[2016-09-24 08:41] LABS: CALCIUM 7.7 mg/dl (8.4-10.2)
[2016-09-24 08:57] LABS: CONDITION 1; LH ANALYZER COMMENTS 1
[2016-09-24] MEDS: INSULIN ASPART [NOVOLOG] 3 ML PEN SC SCH ×3 (09:07→17:28)
[2016-09-24] MEDS: ASPIRIN 81 MG TAB PO SCH (09:08)
[2016-09-24] MEDS: FUROSEMIDE 20 MG INJ IV SCH (09:10)
[2016-09-24] MEDS: LISINOPRIL 20 MG TAB PO SCH (09:10)
[2016-09-24] MEDS: METOPROLOL 25 MG TAB PO SCH (09:11)
[2016-09-24] MEDS: AMLODIPINE 10 MG TAB PO SCH (09:12)
[2016-09-24] MEDS: HEPARIN 5,000 UNIT/0.5 ML SYG SC SCH (09:14)
[2016-09-24] MEDS ORDERED: METO-448 PO (10:23)
[2016-09-24] MEDS ORDERED: ASPI81TA3 PO (10:23)
[2016-09-24] MEDS ORDERED: AMLO-147 PO (10:23)
[2016-09-24] MEDS ORDERED: CLON0.2T12 PO (10:23)
[2016-09-24] MEDS ORDERED: HYDR-3671 PO (10:23)
[2016-09-24] MEDS ORDERED: LISI20TA11 PO (10:23)
--- NOTE | 2016-09-24 10:36 | PDOCDIS ---
Discharge Instructions DIAGNOSIS Discharge Diagnosis: Fluid Overload, Hypertension CONDITION Patient Condition: Stable HOME CARE INSTRUCTIONS: Special Diet: renal ACTIVITY: Activity Restrictions: Slowly Increase Activity Rest between Activity Avoid heavy lifting FOLLOW UP/APPOINTMENTS Appointments Follow up with nephrology as scheduled. Follow up with primary care physician in one week. Follow up with cardiology in 1-2 weeks. OTHER ORDERS: Other Orders: Fluid overload - continue with renal diet and dialysis to remove the fluid. Low salt intake Essential hypertension - continue with the newly prescribed medications LIZZ FLOOD MD Sep 24, 2016 10:36
--- NOTE | 2016-09-24 11:04 | DS ---
DATE OF ADMISSION: 09/19/2016 DATE OF DISCHARGE: 09/24/2016 DISCHARGE DIAGNOSES: 1. Systemic inflammatory response syndrome, improved. 2. Acute respiratory distress secondary to pulmonary edema, improved. 3. Hypertensive urgency, improved. 4. End-stage renal disease on hemodialysis Friday, and Friday. 5. Type 2 diabetes. 6. Anemia of chronic kidney disease. 7. Hyperkalemia, resolved. 8. Mild rhabdomyolysis, resolved. HOSPITAL COURSE: This is a 46-year-old male with a history of essential hypertension, type 2 diabetes, depression, end-stage renal disease on hemodialysis, presented to the emergency department with shortness of breath and cough. He had gotten dialysis prior to coming to the ER 1 day prior. Otherwise, consultants on this case as nephrology as well. LABORATORIES: Initial laboratory findings had shown a white count 6.0, went up as high as 11.1, currently 7.4, H and H was stable throughout his stay. Platelets 215. Chemistry initially had shown a potassium of 5.3, chloride of 94 , carbon dioxide 28, anion gap of 19, BUN of 61, creatinine 10.72, glucose of 246. Hemoglobin A1c of 5.2, calcium 8.8. Troponin, 0.026, 0.015 and 0.014. Current BUN and creatinine of 74 and 11.71. This is prior to dialysis today. Coags have been stable MICROBIOLOGY: Influenza AB urine cultures and blood cultures were all negative. The patient was initially started on antibiotics and was discontinued as SIRS has resolved. His blood pressure has been elevated at this time at 184/88, but he has been started on new medications which has improved his blood pressure dramatically. Otherwise, no other acute complaints at this time. On the day of discharge, the patient was getting dialysis. No other acute complaints. I spoke to him at length about the care plan and agree with the care plan. DISPOSITION: Home. CONDITION: Stable. DISCHARGE MEDICATIONS: Include: 1. Norvasc 10 mg p.o. daily. 2. Aspirin 81 mg p.o. daily. 3. Clonidine 0.2 mg p.o. q.6h. 4. Hydralazine 25 mg p.o. q.8. 5. Lisinopril 40 mg p.o. daily. 6. Metoprolol 25 mg p.o. b.i.d. 7. Lantus at his home dose. FOLLOWUP: The patient will follow up with his primary care physician in 1 week. Will follow with cardiology in 1 to 2 weeks. Will follow up with nephrology and hemodialysis as scheduled. The patient and consultants made aware of this and agree with the plan. COORDINATION OF DISCHARGE: Greater than 40 minutes. Dictated By: LIZZ CAMPBELL/GERARDO Conf#: [id number] DID#: [id number] MTDD
--- NOTE | 2016-09-24 11:58 | PN ---
DATE: 09/24/2016 SUBJECTIVE: The patient is stable, no acute events overnight. No fever, chills, nausea or vomiting . OBJECTIVE: VITAL SIGNS: Blood pressure 108/88, respirations 17, pulse 80, temperature 98.3. HEENT: Head is normocephalic. NECK: Supple. HEART: Regular rate. LUNGS: Show diminished breath sounds at the base. ABDOMEN: Soft, nontender to palpation without rebound or guarding. EXTREMITIES: Negative for clubbing, cyanosis, no edema. DERMATOLOGIC: No rashes. MUSCULOSKELETAL: No joint effusions. NEUROLOGIC: No change in exam. MEDICATIONS: The patient's medications have been reviewed. LABORATORY DATA: Shows a sodium of 137, potassium 4.7, chloride 97, BUN 74, creatinine 1.71. White count 9.3, hemoglobin 10.0, hematocrit 28.1, platelet count is 191. ASSESSMENT AND PLAN: 1. End-stage renal disease. The patient is on dialysis Friday, , Friday. Plan for hemo dialysis today for 3 hours on 3 K bath, calcium 2.5, will ultrafiltrate as tolerated. 2. Hypertensive urgency. Etiology is in part due to increased intravascular volume. Continue ultr afiltration dialysis. Continue current blood pressure regimen. 3. Volume overload, improving. Continue ultrafiltration dialysis. 4. Hypokalemia, improved. Continue dialysis on a low potassium bath. 5. Mineral bone disorder. Continue to monitor calcium and phosphorous levels. 6. Acute respiratory failure secondary to pulmonary edema improved. She is currently stable on john m air. 7. Low-grade fever, systemic inflammatory response syndrome. The patient is currently off antibiot ics. Cultures have been negative to date. Will continue to monitor. Dictated By: GIOVANA HOUSE/GERARDO Conf#: [id number] DID#: [id number]
== END 2016-09-24 19:00 | disposition home or self-care (01) | DRG 682 ==
LOC: E/R 17:34 → TEL 09-19 01:32
PROVIDERS: ADMIT Internal Medicine; ATTEND Internal Medicine
PROC: 5A1D60Z (ICD-10-PCS; principal; 2016-09-19)
DX: I12.0 Hypertensive chronic kidney disease with stage 5 chronic kidney disease or end stage renal disease (principal); N18.6 End stage renal disease; J96.00 Acute respiratory failure, unspecified whether with hypoxia or hypercapnia; M62.82 Rhabdomyolysis; R65.10 Systemic inflammatory response syndrome (SIRS) of non-infectious origin without acute organ dysfunction; E11.22 Type 2 diabetes mellitus with diabetic chronic kidney disease; E11.65 Type 2 diabetes mellitus with hyperglycemia; E87.70 Fluid overload, unspecified; Z99.2 Dependence on renal dialysis; I16.0 Hypertensive urgency; E87.5 Hyperkalemia; E83.89 Other disorders of mineral metabolism; D63.1 Anemia in chronic kidney disease
CPT/HCPCS: 36415; 71010; 80048; 80053; 80061; 82550; 82553; 82962; 83036; 83735; 84100; 84443; 84484; 85025; 85610; 85730; 87040; 87086; 87400; 90935; 93005; 93306; 96374; 96375; 96376; J1940; J0360; J1815; J2270; J2405; J2543; J3370; J7050

== ENCOUNTER 2018-05-29 10:27 | Emergency (ER) | END 2018-05-29 13:15 | disposition left against medical advice (07) ==